=== PATIENT | male | born 1980 | race Caucasian/White ===

== ENCOUNTER 2016-11-09 10:27 | Emergency (ER) | payer OTHER ==
[2016-11-09] MEDS ORDERED: Diphtheria,Pertussis(Acell),Tetanus Vaccine 0.5 ML Syringe IM ONE (10:47)
[2016-11-09] MEDS ORDERED: Lidocaine 1% with EPINEPHrine 1:100,000 20 ML MDV INJECT ONE (11:58)
--- NOTE | 2016-11-09 13:11 | EDM.PDOC ---
ED HPI GENERAL MEDICAL PROBLEM - General Chief Complaint: Laceration Stated Complaint: CUT TO RIGHT KNEE Time Seen by Provider: 11/09/16 12:40 Source of Information: Reports: Patient History Limitations: Reports: No Limitations - History of Present Illness INITIAL COMMENTS - FREE TEXT/NARRATIVE: History of present illness: [5-year-old male comes in with a one and half centimeter laceration to the inside of the right thigh secondary to an accidental box stapler slipped. Patient indicates he was cutting up several boxes when he used the box stapler in an appropriate fashion and ended up jamming it in his leg.] Review of systems: As per history of present illness and below otherwise all systems reviewed and negative. Past medical history: As per history of present illness and as reviewed below otherwise noncontributory. Surgical history: As per history of present illness and as reviewed below otherwise noncontributory. Social history: No reported history of drug or alcohol abuse. Family history: As per history of present illness and as reviewed below otherwise noncontributory. Physical exam: HEENT: Atraumatic, normocephalic, pupils reactive, negative for conjunctival pallor or scleral icterus, mucous membranes moist, throat clear, neck supple, nontender, trachea midline. Lungs: Clear to auscultation, breath sounds equal bilaterally, chest nontender. Heart: S1S2, regular, negative for clicks, rubs, or JVD. Abdomen: Soft, nondistended, nontender. Negative for masses or hepatosplenomegaly. Negative for costovertebral tenderness. Pelvis: Stable nontender. Genitourinary: Deferred. Rectal: Deferred. Extremities: Atraumatic, negative for cords or calf pain. Neurovascular unremarkable. Neuro: Awake, alert, oriented. Cranial nerves II through XII unremarkable. Cerebellum unremarkable. Motor and sensory unremarkable throughout. Exam nonfocal. Skin: One and half centimeter laceration to right inner knee Procedure note area cleaned and irrigated well. Prepped with Betadine 1% at lidocaine with epi injected approximately 3 mils until anesthesia was achieved. 4.[address] 5 interrupted sutures with edges approximated well. Diagnostics: [] Therapeutics: [] Impression: [Laceration approximately 1.5 cm] Plan: [Antibiotics] Definitive disposition and diagnosis as appropriate pending reevaluation and review of above. laceratio to right thigh Pain Score (Numeric/FACES): 1 - Related Data Allergies Allergy/AdvReac Type Severity Reaction Status Date / Time No Known Allergies Allergy Verified 11/09/16 10:43 Home Meds: Home Meds Cephalexin [Keflex] 500 mg PO QID #40 capsule 11/09/16 [Rx] Past Medical History - Past Health History Medical/Surgical History: Denies Medical/Surgical History - Infectious Disease History Infectious Disease History: Reports: Chicken Pox Social & Family History - Family History Endocrine/Metabolic: Reports: Diabetes, Type I - Tobacco Use Smoking Status *Q: Current Every Day Smoker Years of Tobacco use: 25 Packs/Tins Daily: 1 - Caffeine Use Caffeine Use: Reports: Coffee, Energy Drinks, Soda, Tea - Recreational Drug Use Recreational Drug Use: No ED ROS GENERAL - Review of Systems Review Of Systems: See Below (See history of present illness) ED EXAM, SKIN/RASH Exam: See Below (History of present illness) Course - Vital Signs Last Recorded V/S: Last Vital Signs Temp 36.0 C 11/09/16 10:40 Pulse 90 11/09/16 10:40 Resp 18 11/09/16 10:40 BP 116/69 11/09/16 10:40 Pulse Ox 94 L 11/09/16 10:40 - Orders/Labs/Meds Orders: Active Orders 24 hr Category Date Time Status Vaccines to be Administered [RC] PER UNIT ROUTINE Care 11/09/16 10:47 Active Meds: Medications Discontinued Medications Generic Name Dose Route Start Last Admin Trade Name Freq PRN Reason Stop Dose Admin Diphtheria/Tetanus/Acell Pertussis 0.5 ml 11/09/16 10:47 11/09/16 10:50 Adacel IM 11/09/16 10:48 0.5 ml .ONCE ONE Administration Lidocaine/Epinephrine 20 ml 11/09/16 11:58 11/09/16 12:04 Xylocaine 1% With Epinephrine 1:100,000 INJECT 11/09/16 11:59 20 ml ONETIME ONE Administration Departure - Departure Time of Disposition: 13:09 Disposition: Home, Self-Care 01 Condition: Good Clinical Impression: Laceration - Discharge Information Instructions: Laceration Care, Adult, [id number], Stitches, Irving, or Adhesive Wound Closure, [id number] Forms: ED Department Discharge Additional Instructions: The following information is given to patients seen in the emergency department who are being discharged to home. This information is to outline your options for follow-up care. We provide all patients seen in our emergency department with a follow-up referral. The need for follow-up, as well as the timing and circumstances, are variable depending upon the specifics of your emergency department visit. If you don't have a primary care physician on staff, we will provide you with a referral. We always advise you to contact your personal physician following an emergency department visit to inform them of the circumstance of the visit and for follow-up with them and/or the need for any referrals to a consulting specialist. The emergency department will also refer you to a specialist when appropriate. This referral assures that you have the opportunity for follow-up care with a specialist. All of these measure are taken in an effort to provide you with optimal care, which includes your follow-up. Under all circumstances we always encourage you to contact your private physician who remains a resource for coordinating your care. When calling for follow-up care, please make the office aware that this follow-up is from your recent emergency room visit. If for any reason you are refused follow-up, please contact the [facility] Emergency Department at and asked to speak to the emergency department charge nurse. Follow-up with primary care provider one to 2 days Leave sutures in leg 7-10 days he may return to ER to have these removed if you do not return to your PCP again for that Take medication until gone Return to ED as needed as discussed - My Orders Last 24 Hours: My Active Orders 11/09/16 10:47 Vaccines to be Administered [RC] PER UNIT ROUTINE - Assessment/Plan Last 24 Hours: My Active Orders 11/09/16 10:47 Vaccines to be Administered [RC] PER UNIT ROUTINE
[2016-11-09 17:30] VITALS: BP 119/69
== END 2016-11-09 13:25 | disposition home or self-care (01) ==
LOC: MW.ED 10:27
DX: S71.111A Laceration without foreign body, right thigh, initial encounter (principal); Z23 Encounter for immunization; F17.210 Nicotine dependence, cigarettes, uncomplicated; W27.8XXA Contact with other nonpowered hand tool, initial encounter
CPT/HCPCS: 12001; 90471; 90715; 99282-25; 99283

== ENCOUNTER 2016-11-16 11:39 | Emergency (ER) | payer OTHER ==
[2016-11-16 11:54] VITALS: BP 115/65
== END 2016-11-16 11:56 | disposition left against medical advice (07) ==
LOC: MW.ED 11:39
DX: Z53.21 Procedure and treatment not carried out due to patient leaving prior to being seen by health care provider (principal)

== ENCOUNTER 2022-02-28 12:12 | Emergency (ER) | payer SELFPAY ==
[2022-02-28] MEDS ORDERED: Benzocaine 20% Topical Spray UD MUCMEM ONE (13:07)
[2022-02-28] MEDS ORDERED: Lidocaine 2% Viscous Solution 15 ML UD PO ONE (13:07)
[2022-02-28 13:38] VITALS: BP 121/85; PULSE 74
== END 2022-02-28 13:38 | disposition home or self-care (01) ==
LOC: MW.ED 12:12
DX: K04.7 Periapical abscess without sinus (principal)
CPT/HCPCS: 99282; A9270